=== PATIENT | female | born 1990 | race Caucasian/White ===

== ENCOUNTER → 2019-01-14 16:28 | Outpatient (CLI) | payer OTHER, MEDICAID, SELFPAY ==
[2019-01-14 17:20] LABS: Glucose 82 mg/dL (70-100)
[2019-01-14 17:29] LABS: Add Manual Diff / Slide Review NO; Basophils Absolute Auto 100 /uL (0-100); Basophils Percent Auto 0.7 % (0-2); Eosinophils Absolute Auto 300 /uL (0-450); Eosinophils Percent Auto 2.4 % (2-4); Hematocrit 39.4 % (36-46); Hemoglobin 13.2 g/dL (12.0-16.0); Lymphocytes Absolute Auto 2400 /uL (1100-4500); Lymphocytes Percent Auto 17.6 % (25-40); Mean Corpuscular HGB Conc 33.4 % (30-36); Mean Corpuscular Hemoglobin 27.9 PG (26-34); Mean Corpuscular Volume 83.5 fL (80-100); Monocytes Absolute Auto 700 /uL (0-900); Monocytes Percent Auto 5.2 % (3-14); Neutrophils Absolute Auto 10000 /uL (1500-7000); Neutrophils Percent Auto 74.1 % (50-75); Platelet Count 305 X10^3/uL (150-400); Red Blood Cell Count 4.71 X10^6/uL (4.0-5.2); Red Cell Distribution Width 13.7 % (11.6-14.8); White Blood Cell Count 13.5 X10^3/uL (4.5-11.0)
[2019-01-14 18:40] LABS: Hepatitis B Surface Antigen NEGATIVE s/c (NEGATIVE); Rubella Antibody IgG 17.2 IU/mL (>15)
[2019-01-14 18:52] LABS: HIV 1 and 2 Antibody NEGATIVE (NEGATIVE); Hep C Virus Ab w/Reflex Quant NEGATIVE s/c (NEGATIVE)
[2019-01-14 18:54] LABS: Appearance Urine UA CLEAR; Bilirubin Urine UA NEGATIVE (NEGATIVE); Color Urine UA YELLOW; Glucose Urine UA NEGATIVE (Negative); Ketones Urine UA 1+ (NEGATIVE); Leukocyte Esterase Urine UA 1+ (NEGATIVE); Nitrite Urine UA NEGATIVE (Negative); Occult Blood Urine UA NEGATIVE (Negative); Protein Urine UA NEGATIVE (Negative); Specific Gravity Urine UA 1.015 (1.000-1.035); Urobilinogen Urine UA 0.2 E.U./dL (0.2)
[2019-01-14 18:59] LABS: Bacteria Urine None Seen; RBC Urine None Seen (0-5/HPF)
[2019-01-14 19:05] LABS: Culture Indicated Urine Cult Not Indicated; Squamous Epithelial Cell Urine 5-10 /HPF; WBC Urine 5-10/HPF (0-5/HPF)
[2019-01-17 06:58] LABS: RPR Screen Nonreactive (Nonreactive)
== END ==
DX: Z34.81 Encounter for supervision of other normal pregnancy, first trimester (principal)
CPT/HCPCS: 36415; 80055; 81003; 81015; 82947; 83036; 84163; 84702; 86703; 86787; 86803; 86850; 86900; 86901; 87086

== ENCOUNTER → 2019-02-07 17:22 | Outpatient (CLI) | payer OTHER, MEDICAID, SELFPAY | DX: Z34.92 Encounter for supervision of normal pregnancy, unspecified, second trimester (principal) | CPT/HCPCS: 36415; 82105; 82677; 84163; 84702; 86336 ==

== ENCOUNTER → 2019-04-11 09:48 | Outpatient (CLI) | payer OTHER, MEDICAID, SELFPAY ==
[2019-04-11 12:04] LABS: Hematocrit 35.1 % (36-46); Hemoglobin 11.9 g/dL (12.0-16.0)
[2019-04-11 12:08] LABS: GTT (PREG) 1 Hour PP 50gm Dose 110 mg/dL (76-139)
== END ==
DX: Z34.82 Encounter for supervision of other normal pregnancy, second trimester (principal)
CPT/HCPCS: 36415; 82950; 85014; 85018; 86850

== ENCOUNTER → 2019-06-21 17:29 | Outpatient (CLI) | payer OTHER, MEDICAID, SELFPAY ==
[2019-06-22 11:38] LABS: Strep Grp B PCR NEG for Grp B Strep
== END ==
PROVIDERS: PCP Registered Nurse
DX: Z34.83 Encounter for supervision of other normal pregnancy, third trimester (principal); Z3A.35 35 weeks gestation of pregnancy
CPT/HCPCS: 87653

== ENCOUNTER 2019-07-12 16:08 | Inpatient (IN) | payer OTHER, MEDICAID, SELFPAY ==
--- NOTE | 2019-07-12 17:41 | PM.OBHP.1 ---
OB HPI Date/Time Date of admission: 07/12/19 Date Patient Seen: 07/12/19 Time Patient Seen: 17:41 History of Present Condition Chief complaint: contractions : 3 Para: 2 Estimated Date of Delivery: 07/20/19 Estimated Gestational Age (weeks): 39 Narrative: Dione Castro is a 28 year old female Comments: Patient presents with contraction at 39 weeks of History of Present care: good care, initiated at week # (9), number of visits (13) and pounds weight gain (10) Dating criteria: LMP confirmed by 1st trimester US Ultrasounds: normal 1st trimester US and normal mid trimester US Obstetrical complications: none Medical complications: none Narrative: three para two presents in early labor. Uneventful history of precipitous delivery in last history of hemorrhage Preadmission Labs Blood type: 0 (-) negative -: Antibody screen: negative, Cystic fibrosis screen: unknown, GBS status: negative, HBsAG: negative, HIV: negative, HSV 1: negative, HSV 2: negative and RPR/VDLR: negative -: Chlamydia screen: detected (Negative) and Gonorrhea screen: detected (Negative) -: Rubella: immune and Varicella: unknown PAP: Normal Integrated screen: Negative Quad screen: Normal 1 hr GTT: 110 PFSH Surgical History History of third molar tooth extraction Family History (Updated 05/18/14 @ 00:00 by Emmanuelle Benedict MD) Father Age: 60 Glucose intolerance (pre-diabetes) Hypertension Mother Hypertension Migraine Family History Father Age: 60 Glucose intolerance (pre-diabetes) Hypertension Mother Hypertension Migraine Meds Home Medications and Allergies Home Medications Medication Instructions Recorded Confirmed Type vitamin-ferrous fumarate 1 cap PO QDAY #90 cap 01/14/19 01/14/19 Rx 65 mg iron-folic acid 1 mg capsule Review of Systems Review of Systems ROS Unobtainable: All systems reviewed & are unremarkable except as noted in HPI and below Exam Const General: cooperative and healthy appearing HENMT Head: normal to inspection Ears: hearing grossly normal bilaterally Nose: external nose normal Face and sinus: normal facial exam Mouth: oral mucosae normal, lip normal, tongue normal and moist mucous membranes Teeth and gingiva: dentition normal Throat: posterior oropharynx normal Eyes General: appearance normal, both eyes and all related structures Neck Neck: normal visual inspection and full ROM Chest Chest: normal inspection of the chest and normal palpation of entire chest wall Breast inspection: normal inspection of the breasts and normal inspection of the axillae Breast Palpation: normal palpation of the breasts and normal palpation of the axillae Resp Effort & Inspection: normal respiratory effort Auscultation: clear to auscultation bilaterally Cardio Palpation: normal PMI Rate: regular rate Rhythm: regular rhythm Heart Sounds: S1 normal and S2 normal GI Inspection: normal to inspection Palpation: soft and no hepatosplenomegaly Percussion: normal to percussion Auscultation: normal bowel sounds OB/External & Speculum: external exam normal Manual OB Exam: dilated 2, effaced 75% and station 0 Uterus Location (Fundal Height): 37 Presentation: vertex Estimated Weight (lbs): 7 Back/Spine/Pelvis Thoracic/Lumbar Spine: thoracic and lumbar spine normal to inspection Skin General: no rashes or lesions noted Neuro General: alert, oriented x3, tone normal and moves all extremities Cognition: normal cognition Speech: speech normal Gait: normal gait Motor: muscle tone normal throughout Sensory Exam: no sensory deficits noted Extrem General: normal to inspection and normal exam except as noted Psych Appearance: grossly normal and well kempt Mental Status: mental status grossly normal Speech and Movement: speech and movement normal Objective ECG Impression: 39 week intrauterine Early labor History precipitous labor History hemorrhage Observation
--- NOTE | 2019-07-12 19:44 | PM.OBPRVD ---
Labor & Delivery Delivery date: 07/12/19 Intrapartal events: None Cervical ripening method: none Induction method: none Delivery monitor: external FHT and external uterine Route of delivery: Estimated blood loss (mL): 200 Anesthesia type: None Complications: None Narrative: Patient is a 28-year-old three para two with uneventful antepartum course. Patient presented in early labor. She had a history of precipitous delivery during her last . The patient indeed want to complete rapidly with rupture membranes with light meconium and delivered spontaneously a live born male infant with scores eight at 1 minutes and nine at 5 minutes in good condition. There was no episiotomy. There were no cervical or vaginal lacerations. Estimated blood loss was 200 cc. Plan for aftercare: Routine care
[2019-07-12] MEDS: METHYLERGONOVINE 0.2 MG TABLET PO (20:01)
[2019-07-12] MEDS: IBUPROFEN 600 MG TABLET PO (20:08)
[2019-07-12 20:13] VITALS: BP 112/72
[2019-07-12 21:55] LABS: Add Manual Diff / Slide Review NO; Basophils Absolute Auto 100 /uL (0-100); Basophils Percent Auto 0.5 % (0-2); Eosinophils Absolute Auto 100 /uL (0-450); Eosinophils Percent Auto 0.5 % (2-4); Hematocrit 37.9 % (36-46); Hemoglobin 12.9 g/dL (12.0-16.0); Lymphocytes Absolute Auto 1800 /uL (1100-4500); Lymphocytes Percent Auto 9.2 % (25-40); Mean Corpuscular HGB Conc 33.9 % (30-36); Mean Corpuscular Hemoglobin 29.7 PG (26-34); Mean Corpuscular Volume 87.4 fL (80-100); Monocytes Absolute Auto 900 /uL (0-900); Monocytes Percent Auto 4.4 % (3-14); Neutrophils Absolute Auto 16400 /uL (1500-7000); Neutrophils Percent Auto 85.4 % (50-75); Platelet Count 250 X10^3/uL (150-400); Red Blood Cell Count 4.33 X10^6/uL (4.0-5.2); White Blood Cell Count 19.2 X10^3/uL (4.5-11.0)
[2019-07-13] MEDS: IBUPROFEN 600 MG TABLET PO (02:07)
[2019-07-13] MEDS: METHYLERGONOVINE 0.2 MG TABLET PO (02:07)
--- NOTE | 2019-07-13 08:37 | P.DS_ITS ---
Discharge Providers Provider Date of admission: 07/12/19 16:08 Discharge Date: 07/13/19 Primary care physician: Du Padilla ND Consults: 07/12/19 19:42 Consult to Corporate Strategy Analyst Routine Comment: Discharge provider: Rod Benitez MD Summary Hospital Course Date Patient Seen: 07/13/19 Time Patient Seen: 08:38 Procedures: Spontaneous vaginal delivery Hospital Course: The patient is 8th 28-year-old white female three para two at 39 weeks of . She presented in active labor and had a precipitous delivery of a live-born male infant score eight at 1 minute nine at 5 minutes weighing 5 lb 15 oz. There was no episiotomy, no perineal tear, no cervical or vaginal lacerations. Estimated blood loss was 200 cc and the measured blood loss was 300 cc. Post delivery the patient did well. She remained afebrile stable vital signs and was progressively alimented and ambulated she was discharged home per week Peripartum Data Delivery Method: Natural Vaginal Procedures: Spontaneous vaginal delivery complications: none Status at Discharge Cognitive/behavioral status at discharge: oriented Functional status at discharge: independent ambulation Overall status at discharge: patient is progressing back to baseline Time Spent with Patient Time attestation: Total time spent providing and/or coordinating discharge serv ices: Time spent: Less than 30 minutes Objective Labs Result Diagrams: 07/12/19 19:00 Labs: Laboratory Results - last 24 hr 07/12/19 07/12/19 19:00 22:10 WBC 19.2 H RBC 4.33 Hgb 12.9 Hct 37.9 MCV 87.4 MCH 29.7 MCHC 33.9 RDW 13.0 Plt Count 250 Neut % (Auto) 85.4 H Lymph % (Auto) 9.2 L [place] % (Auto) 4.4 Eos % (Auto) 0.5 L Baso % (Auto) 0.5 Neut # (Auto) 57371 H Lymph # (Auto) 1800 [place] # (Auto) 900 Eos # (Auto) 100 Baso # (Auto) 100 Blood Type Antibody Screen Negative Exam Narrative Exam Narrative: Fundus U minus three Lochia scant Perineum without ecchymosis Discharge Plan Discharge Plan Patient Disposition: Home Discharge Med Rec/Prescriptions Prescriptions: New Dermoplast (with menthol) 20-0.5 % Aerosol 1 spray topical Q1HR PRN (Reason: perineal pain) Qty: 1 RF: 0 oxycodone-acetaminophen 5-325 mg Tablet 2 tab PO Q4HR Qty: 10 RF: 0 ibuprofen 600 mg Tablet 600 mg PO Q6HR PRN (Reason: Pain, Mild (1-3)) Qty: 16 RF: 0 docusate sodium 250 mg Capsule 250 mg PO DAILY Qty: 10 RF: 0 Mnr-I-Kooaoc Cream 1 applic topical PRN PRN (Reason: Tenderness) Qty: 1 RF: 0 ferrous gluconate 324 mg (38 mg iron) Tablet 324 mg PO DAILY Qty: 30 RF: 0 Discontinued Mynatal 65 mg iron- 1 mg capsule 1 cap PO QDAY Qty: 90 RF: 3 Follow up/Referrals: Du Padilla ARNP [Primary Care Provider] - Rod Benitez MD [Physician] - 08/02/19 Provider Discharge Instructions Diet: Diet as Tolerated Activity: up ad francia Skin/Wound/Dressing Care Report to your healthcare provider any signs of infection, such as:: chills, fever, increased pain, unusual drainage and unusual redness Discharge Data Primary Care Provider: Du Padilla Attending Provider: Rod Benitez Admit Date/Time: 07/12/19 16:08
[2019-07-13 08:38] LABS: Hematocrit 39.2 % (36-46)
[2019-07-13] MEDS: DOCUSATE 250 MG CAPSULE PO (09:42)
[2019-07-13] MEDS: FERROUS GLUCONATE 324 MG TABLET PO (09:42)
[2019-07-13] MEDS: RHO(D) IMMUNE GLOBULIN 1,500 UNIT SYRINGE 1500 UNIT IM (16:02)
[2019-07-13 16:08] VITALS: BP 101/64; PULSE 63; RESP 16; TEMP 36.6
== END 2019-07-13 17:11 | disposition home or self-care (01) | DRG 807 ==
PROVIDERS: PCP Registered Nurse
DX: O80 Encounter for full-term uncomplicated delivery (principal); Z37.0 Single live birth; Z3A.39 39 weeks gestation of pregnancy
CPT/HCPCS: 36415; 59050; 59400; 85014; 85025; 86850; 86900; 86901; G0379; J2790

== ENCOUNTER 2019-12-23 20:02 | Emergency (ER) | payer OTHER, SELFPAY ==
[2019-12-23 20:06] VITALS: BP 126/83; PULSE 105; RESP 14; TEMP 36.8; O2SAT 99; BMI 28.3
--- NOTE | 2019-12-23 20:09 | DI.RAD.S_ITS ---
PROCEDURE: XR TOE RT MIN 2V INDICATIONS: third toe injury TECHNIQUE: 3 views of the third toe(s) acquired. COMPARISON: None. FINDINGS: Bones: There is a nondisplaced oblique fracture of the third proximal phalangeal shaft. No suspicious bony lesions. Soft tissues: No suspicious soft tissue densities. IMPRESSION: Non-displaced third proximal phalangeal shaft fracture. Dictated by: Remy Knowles M.D. on 12/23/2019 at 20:51 Approved by: Remy Knowles M.D. on 12/23/2019 at 20:53
--- NOTE | 2019-12-23 20:51 | ED_ITS ---
HPI - Extremity Injury (Lower) General Chief Complaint: Extremity Injury, Lower Stated Complaint: right 3rd toe injury Time Seen by Provider: 12/23/19 20:40 Source: patient Mode of arrival: Ambulatory Limitations: no limitations History of Present Illness HPI Narrative: 29-year-old female here for evaluation of the right 3rd toe injury. She states that she accidentally kicked her child who ran out in front of her earlier today. States that she heard a pop afterwards. Had pain. Still is able to ambulate however pain continue as the day went on. Related Data Previous Rx's Medication Instructions Recorded lanolin [[id number]] 1 applic TOPICAL PRN PRN #1 g 07/13/19 fluconazole 100 mg tablet 100 mg PO DAILY #14 tab 11/08/19 Allergies Allergy/AdvReac Type Severity Reaction Status Date / Time No Known Drug Allergies Allergy Verified 12/23/19 20:06 Review of Systems Musculoskeletal Musculoskeletal: Denies tingling Comments: Right 3rd toe pain Integumentary/Breasts Skin/Breast: Denies lesions and Denies rash Neurologic Neurologic: Denies tingling Patient History Medical History support offered (Inactive) Candidiasis of breast (Inactive) examination following vaginal delivery (Inactive) Surgical History History of third molar tooth extraction Social History Smoking Status: Never smoker Smoking Status: Never smoker alcohol intake frequency: holidays/special occasions only Substance Use Type: does not use Exam Initial Vital Signs Initial Vital Signs: Vital Signs Temperature 98.2 F 12/23/19 20:06 Pulse Rate 105 H 12/23/19 20:06 Respiratory Rate 14 12/23/19 20:06 Blood Pressure 126/83 12/23/19 20:06 Pulse Oximetry 99 12/23/19 20:06 Skin Lesions: no lesions Rashes: no rashes Neuro Gait: normal gait Sensory Exam: no sensory deficits noted Extrem Other: Tenderness to palpation proximal right 3rd toe Procedures Orthopedic Splinting/Casting Injury #1: Side: right Lower Extremity Injury Location: toe Lower Extremity Immobilizer: post-op shoe and angela tape Post splinting neuro exam: intact Post splinting vascular exam: intact Placed by: Provider Course Orders Ordered: ED Orders 12/23/19 20:09 XR toe RT min 2V Stat Vital Signs Vital signs: Vital Signs - 8 hr 12/23/19 20:06 Temperature 98.2 F Pulse Rate 105 H Respiratory Rate 14 Blood Pressure 126/83 Pulse Oximetry 99 MDM - Extremity Injury (Lower) Imaging Data Extremity x-ray #1: Radiologist's Impression: [address] [address] XRay Report Signed Patient: Dione Castro MMR#: [id number] : 1990Acct:[id number] Age/Sex: 29 / FDate of Service: 12/23/19 Loc: ED Accession Number: [id number] Procedure: XR toe RT min 2V Ordering Provider: Long Cabral D.O. PROCEDURE: XR TOE RT MIN 2V INDICATIONS: third toe injury TECHNIQUE: 3 views of the third toe(s) acquired. COMPARISON: None. FINDINGS: Bones: There is a nondisplaced oblique fracture of the third proximal phalangeal shaft. No suspicious bony lesions. Soft tissues: No suspicious soft tissue densities. IMPRESSION: Non-displaced third proximal phalangeal shaft fracture. Dictated by: Remy Knowles M.D. on 12/23/2019 at 20:51 Approved by: Remy Knowles M.D. on 12/23/2019 at 20:53 [facility] Narrative Medical decision making narrative: Neurovascularly intact, angela tape given a shoe as described above. Patient was given return precautions and follow-up instructions. She expressed understanding and agreement with plan. Discharge Plan Departure Patient Disposition: Home Clinical Impression: Fracture of toe of right foot Qualifiers: Encounter type: initial encounter Toe: lesser toe Fracture type: closed Phalanx: proximal Fracture alignment: nondisplaced Qualified Code(s): S92.514A - Nondisplaced fracture of proximal phalanx of right lesser toe(s), initial encounter for closed fracture Discharge Date/Time: 12/23/19 21:00 Instructions: DI for Toe Fracture, How to Angela Tape Activity Restrictions/Additional Instructions: I would recommend that you body tape your toe like we discussed. You can also wear the hard sole shoe. Contact your primary provider for follow-up. Return to the emergency department for any new or worsening symptoms Prescriptions: No Action fluconazole [Diflucan] 100 mg tablet 100 mg PO DAILY Qty: 14 RF: 0 Vef-P-[id number] Cream 1 applic topical PRN PRN (Reason: Tenderness) Qty: 1 RF: 0 Referrals: Du Padilla ARNP [Primary Care Provider] -
== END 2019-12-23 21:00 | disposition home or self-care (01) ==
PROVIDERS: Emergency Provider Emergency Medicine; PCP Registered Nurse
DX: S92.514A Nondisplaced fracture of proximal phalanx of right lesser toe(s), initial encounter for closed fracture (principal); W51.XXXA Accidental striking against or bumped into by another person, initial encounter
CPT/HCPCS: 73660; 99282; 99283